=== PATIENT | male | born 1960 | race Caucasian/White ===

== ENCOUNTER → 2017-03-06 | Outpatient (CLI) | payer BC ==
[2016-11-02 14:24] VITALS: BP 154/91
[~2017-03-06] MED LIST: NS 100 ML IV 100 ML IV ONE
[2017-03-06 10:42] LABS: CREATININE 1.05 mg/dL (0.70-1.30)
--- NOTE | 2017-03-06 12:30 | CT ---
CT abdomen and pelvis with and without contrast Indication: Palpable abdominal mass within the periumbilical region Comparison: 04/22/2016 Technique: Multiple axial images of the abdomen and pelvis were obtained from the lung bases to the pubic symph ysis before and after the administration of IV contrast. Coronal and sagittal reformatted images we re also provided. Radiation dose reduction techniques were performed utilizing adjustment for MA/kVP based on patient body size. Findings: The lung bases are clear. The liver, gallbladder, bile ducts, spleen, pancreas and adrenal glands ar e normal. Neither kidney demonstrates evidence of nephrolithiasis, hydronephrosis or mass. Upper GI tract is without evidence of mass or obstruction. There is no appreciable change in soft tissue nodu lar density within the anterior aspect of the peritoneum adjacent umbilicus on axial image [id number]. Th ere is extension of thickening/scarring through the periumbilical anterior abdominal wall into the s ubcutaneous tissues of the umbilicus not changed from prior exam. No localizing fluid collection or enlargement of the nodule or worsening thickening of the skin identified. Adjacent loop of small bow el demonstrates no evidence of obstruction. Urinary bladder is normal. Prostate gland is absent. The rectum and colon are normal. The appendix is unremarkable. No pelvic free fluid or adenopathy. Abdo leonardo aorta is normal in caliber. Scattered calcified atherosclerotic disease is noted. No acute oss eous abnormality. Impression: 1.Overall no change in soft tissue nodule within the anterior peritoneum within the periumbilical re gion with moderate thickening and scarring of the periumbilical subcutaneous tissues and skin. No ev idence of enlarging mass or localizing fluid collection in this location. 2. Refer to above for incidental findings. Reported By:
== END ==
LOC: RAD 10:11
PROVIDERS: ATTEND Nurse Practitioner Family
DX: R19.05 Periumbilic swelling, mass or lump (principal)
CPT/HCPCS: 36415; 74178; 82565; 84520; A4222

== ENCOUNTER → 2017-04-15 | Outpatient (CLI) | payer BC ==
[2016-11-02 14:24] VITALS: BP 154/91
--- NOTE | 2017-04-15 11:22 | NM ---
HISTORY: Right upper quadrant pain. Study: Nuclear medicine HIDA scan with ejection fraction Comparison: None. Technique: Multiple scintigraphic images of the abdomen were obtained the intravenous administration of 5.4 mCi of technetium labeled Choletec. Following distention of the gallbladder with radiotracer, 8 oz of Ensure was administered orally. A n estimated gallbladder ejection fraction was calculated based on the resulting physiologic response . Findings: Homogeneous uptake of radiotracer is seen throughout the liver. The intrabiliary ductal system is o bserved normally. The common hepatic and common bile duct are unremarkable with normal biliary-josé l transit. The gallbladder is observed to fill normally. After the oral administration of Ensure, a gallbladder ejection fraction of 22.6% (normal > 35%) is observed. IMPRESSION: 1. Normal hepatobiliary imaging scan. 2. Abnormal gallbladder ejection fraction of 22.6%. Clinical correlation for gallbladder dyskinesia versus cholecystitis is recommended. Reported By:
== END ==
LOC: RAD 08:52
PROVIDERS: ATTEND Internal Medicine
DX: R10.11 Right upper quadrant pain (principal)
CPT/HCPCS: 78227